=== PATIENT | male | born 1995 ===

== ENCOUNTER 2024-01-06 17:35 | Emergency (ER) | payer MEDICAID, OTHER ==
[~2024-01-06] VITALS: Ht 175.3 cm; Wt 145.9 kg
[2024-01-06] MEDS: SODIUM CHLORIDE 0.9% 500 ML IV ONE (18:00)
[2024-01-06] MEDS: cloNIDine HCL 0.1 MG TAB PO ONE (18:00)
[2024-01-06 18:16] VITALS: PULSE 66; RESP 18; O2SAT 95
[2024-01-06 18:47] LABS: Basophils # (auto) 0.1 10 ^3/uL (0-0.2); Basophils % (auto) 0.7 % (0.0-2.0); Eosinophils # (auto) 0.1 10 ^3/uL (0-0.8); Eosinophils % (auto) 1.1 % (0.0-7.0); Hematocrit 39.5 % (41.0-53.0); Hemoglobin 12.8 g/dL (13.5-17.5); Lymphocytes # (auto) 1.2 10 ^3/uL (0.4-5.4); Lymphocytes % (auto) 10.1 % (10.0-50.0); Mean Corpuscular Hemoglobin 29.2 pg (28.0-32.0); Mean Corpuscular Hgb Conc. 32.5 g/dL (32.0-36.0); Mean Corpuscular Volume 89.8 fL (80.0-100.0); Monocytes # (auto) 0.7 10 ^3/uL (0-1.3); Monocytes % (auto) 6.1 % (0.0-12.0); Neutrophils # (auto) 9.4 10 ^3/uL (1.6-8.6); Nucleated Red Blood Cells % 0.1 %; White Blood Cell 11.5 10^3/uL (4.4-10.8)
[2024-01-06 19:05] LABS: Alanine Aminotransferase 25 U/L (7-40); Albumin 4.9 g/dL (3.2-4.8); Alkaline Phosphatase 63 U/L (46-116); Anion Gap 6 (5-15); Aspartate Aminotransferase 39 U/L (13-40); BUN/Creatinine Ratio 8.7 (10.0-20.0); Blood Urea Nitrogen 9 mg/dL (9-23); Calcium 9.9 mg/dL (8.5-10.1); Carbon Dioxide 26 mmol/L (20-30); Chloride 109 mmol/L (98-107); Glucose 106 mg/dL (74-106); Potassium 4.2 mmol/L (3.5-5.1); Sodium 141 mmol/L (136-145)
[2024-01-06 19:06] LABS: Bilirubin, Total 0.2 mg/dL (0.2-1.0); Total Protein 7.3 g/dL (5.7-8.2)
[2024-01-06 21:23] VITALS: BP 110/50; RESP 17; TEMP 98.7; O2SAT 94
[2024-01-06 21:27] VITALS: PULSE 89
== END 2024-01-06 21:27 | disposition home or self-care (01) ==
LOC: ER 17:35 → EDBD 17:35 → ER 21:27
DX: R55 Syncope and collapse (principal); J45.909 Unspecified asthma, uncomplicated; R42 Dizziness and giddiness
CPT/HCPCS: 36415; 70450; 71045; 80053; 85025; 93005; 96360; 99285; J7040